=== PATIENT | male | born 1990 | race Caucasian/White ===

== ENCOUNTER 2025-08-11 06:25 | Day surgery (SDC) | payer OTHER, SELFPAY ==
[2025-08-11] VITALS (8 sets, daily range): BP systolic 115–131; BP diastolic 68–83; BMI 28.0
[2025-08-11] MEDS: CELEBREX 200 MG PO (11:29)
[2025-08-11] MEDS: TYLENOL 1000 MG PO (11:30)
[2025-08-11] MEDS: NORMOSOL-R/PLASMALYTE-A 1000 IV (11:30)
[2025-08-11] MEDS: ZOFRAN 4 MG IV (17:50)
== END 2025-08-11 18:15 | disposition home or self-care (01) ==
LOC: SDS 06:25
PROVIDERS: ATTENDING PHYSICIAN Student in an Organized Health Care Education/Training Program
DX: M24.072 Loose body in left ankle (principal); M25.572 Pain in left ankle and joints of left foot; Q68.8 Other specified congenital musculoskeletal deformities
CPT/HCPCS: 29894; 29898; 73650; 76000; 88304; 88311